=== PATIENT | female | born 1945 | race Caucasian/White ===

== ENCOUNTER 2023-01-04 09:45 | Emergency (ER) | payer OTHER ==
[~2023-01-04] VITALS: Ht 162.6 cm; Wt 68.9 kg
[2023-01-04 09:51] VITALS: BP_SYST 137; PULSE 73; RESP 20; TEMP 98; O2SAT 97
[2023-01-04 10:07] VITALS: BP_SYST 137; PULSE 75; RESP 18; TEMP 97.5; O2SAT 97
[2023-01-04 10:18] LABS: BASOPHILS # (AUTO) 0.1 K/uL (0.0-0.2); BASOPHILS % (AUTO) 0.6 % (0.0-2.0); EOSINOPHILS # (AUTO) 0.2 K/uL (0.0-0.4); EOSINOPHILS % (AUTO) 1.9 % (0.0-4.0); HEMATOCRIT 27.2 % (36-48); HEMOGLOBIN 8.9 g/dL (12.0-16.0); LYMPHOCYTES # (AUTO) 2.2 K/uL (1.0-5.5); LYMPHOCYTES % (AUTO) 20.4 % (20.5-51.5); MEAN CORPUSCULAR HEMOGLOBIN 29 pg (27-31); MEAN CORPUSCULAR HGB CONC 33 % (32-36); MEAN CORPUSCULAR VOLUME 88 fL (79.0-98.0); MONOCYTES # (AUTO) 0.7 K/uL (0.0-1.0); MONOCYTES % (AUTO) 6.3 % (1.7-9.3); NEUTROPHILS # (AUTO) 7.8 K/uL (1.8-7.7); NEUTROPHILS % (AUTO) 70.8 % (40.0-70.0); PLATELET COUNT (AUTO) 406 K/uL (130-430); RED BLOOD CELL COUNT(AUTO) 3.07 MIL/uL (4.2-6.2); RED CELL DISTRIBUTION WIDTH 17.2 % (9.0-15.0)
[2023-01-04 10:25] LABS: ANION GAP 5 (5-15); CALCIUM 9.2 mg/dL (8.4-11.0); CARBON DIOXIDE 31 mmol/L (23-29); CHLORIDE 96 mmol/L (98-107); CREATININE 0.89 mg/dL (0.55-1.30); GLUCOSE 176 mg/dL (74-106); POTASSIUM 4.1 mmol/L (3.5-5.1); SODIUM SERUM 132 mmol/L (136-145); UREA NITROGEN, BLOOD 27 mg/dL (8-21)
[2023-01-04 10:32] LABS: ALANINE AMINOTRANSFERASE 19 U/L (12-78); ALBUMIN 2.3 g/dL (3.4-4.8); ASPARTATE AMINOTRANSFERASE 16 U/L (10-37); TOTAL BILIRUBIN 0.4 mg/dL (0.0-1.0); TOTAL PROTEIN, SERUM 7.4 g/dL (6.4-8.3)
== END 2023-01-04 11:51 | disposition home or self-care (01) ==
LOC: SED 09:45
DX: R04.0 Epistaxis (principal); D64.9 Anemia, unspecified; J44.9 Chronic obstructive pulmonary disease, unspecified; E11.9 Type 2 diabetes mellitus without complications; Z88.5 Allergy status to narcotic agent; Z79.899 Other long term (current) drug therapy
CPT/HCPCS: 36415; 80053; 85025; 99283

== ENCOUNTER 2023-01-18 18:40 | Inpatient (IN) | payer OTHER ==
[~2023-01-18] VITALS: Ht 165.1 cm; Wt 89.5 kg
[2023-01-18 18:55] VITALS: BP_SYST 135; PULSE 86; RESP 16; TEMP 98.6; O2SAT 98
[2023-01-18] MEDS ORDERED: PRAV40TA63 PO (19:11)
[2023-01-18] MEDS ORDERED: DULR10 PR (19:11)
[2023-01-18] MEDS ORDERED: ATRMDI INH (19:11)
[2023-01-18] MEDS ORDERED: IPRA0.2S6 INH (19:11)
[2023-01-18] MEDS ORDERED: AMIO200T66 PO (19:11)
[2023-01-18] MEDS ORDERED: APIX5TAB PO (19:11)
[2023-01-18] MEDS ORDERED: PANT40GR PO (19:11)
[2023-01-18] MEDS ORDERED: FLUT1BLS5 INH (19:11)
[2023-01-18] MEDS ORDERED: FURO20TA4 PO (19:11)
[2023-01-18] MEDS ORDERED: DICY20TA55 PO (19:11)
[2023-01-18] MEDS ORDERED: XOP.63 INH (19:11)
[2023-01-18] MEDS ORDERED: ACET325T53 PO (19:11)
[2023-01-18] MEDS ORDERED: MELA10CA PO (19:11)
[2023-01-18] MEDS ORDERED: SITA1TAB9 PO (19:11)
[2023-01-18] MEDS ORDERED: TRAZ150T77 PO (19:11)
[2023-01-18 19:41] LABS: BASOPHILS % (AUTO) 0.4 % (0.0-2.0); EOSINOPHILS # (AUTO) 0.1 K/uL (0.0-0.4); EOSINOPHILS % (AUTO) 1.2 % (0.0-4.0); HEMATOCRIT 28.1 % (36-48); HEMOGLOBIN 9.3 g/dL (12.0-16.0); LYMPHOCYTES # (AUTO) 1.9 K/uL (1.0-5.5); LYMPHOCYTES % (AUTO) 17.8 % (20.5-51.5); MEAN CORPUSCULAR HEMOGLOBIN 29 pg (27-31); MEAN CORPUSCULAR HGB CONC 33 % (32-36); MEAN CORPUSCULAR VOLUME 89 fL (79.0-98.0); MONOCYTES # (AUTO) 0.7 K/uL (0.0-1.0); MONOCYTES % (AUTO) 6.5 % (1.7-9.3); NEUTROPHILS % (AUTO) 74.1 % (40.0-70.0); PLATELET COUNT (AUTO) 276 K/uL (130-430); RED BLOOD CELL COUNT(AUTO) 3.17 MIL/uL (4.2-6.2); RED CELL DISTRIBUTION WIDTH 18.2 % (9.0-15.0); WHITE BLOOD COUNT (AUTO) 10.8 K/uL (4.8-10.8)
[2023-01-18 19:48] LABS: ANION GAP 7 (5-15); CALCIUM 8.7 mg/dL (8.4-11.0); CARBON DIOXIDE 28 mmol/L (23-29); CHLORIDE 95 mmol/L (98-107); CREATININE 1.05 mg/dL (0.55-1.30); GLUCOSE 225 mg/dL (74-106); SODIUM SERUM 130 mmol/L (136-145); UREA NITROGEN, BLOOD 32 mg/dL (8-21)
[2023-01-18 20:49] LABS: BILIRUBIN,URINE NEGATIVE (NEGATIVE); BLOOD, URINE 2+ (NEGATIVE); COLOR,URINE YELLOW (YELLOW); GLUCOSE,URINE NEGATIVE (NEGATIVE); KETONES,URINE NEGATIVE (NEGATIVE); LEUKOCYTE ESTERASE ,URINE 3+ (NEGATIVE); NITRITE, URINE NEGATIVE (NEGATIVE); PH,URINE 5.5 (5.0-8.0); PROTEIN URINE NEGATIVE (NEGATIVE); UROBILINOGEN,URINE 0.2 (0.2-1.0)
[2023-01-18 20:58] LABS: CLARITY/URINE CLOUDY (CLEAR)
[2023-01-18 21:00] LABS: BACTERIA,URINE MODERATE /HPF (None Seen); MUCUS,URINE None Seen /LPF (None Seen); RBC,URINE 0-3 /HPF (0-3); WBC,URINE >100 /HPF (0-3)
[2023-01-18] MEDS ORDERED: cefTRIAXone 1 GM in D5W 50 ML IV ONE ×2 (21:15→22:15)
[2023-01-18] MEDS ORDERED: LORazepam 1 MG TABLET PO ONE (21:15)
[2023-01-18] MEDS ORDERED: cefTRIAXone 1 GM VIAL ONE (21:34)
[2023-01-18] MEDS ORDERED: 0.45% NACL 1,000 ML IV ONE (22:15)
[2023-01-19] VITALS (12 sets, daily range): BP systolic 101–121; PULSE 70–83; RESP 18–20; TEMP 98.1–98.4; O2SAT 95–98
[2023-01-19] MEDS: ALPRAZolam 0.25 MG TABLET PO PRN ×2 (06:26→20:49)
[2023-01-19] MEDS ORDERED: BISACODYL 10 MG/SUPPOSITORY RC PRN (11:45)
[2023-01-19] MEDS ORDERED: ACETAMINOPHEN 325 MG TABLET PO PRN (11:45)
[2023-01-19] MEDS: cefTRIAXone 1 GM in D5W 50 ML IV SCH (13:22)
[2023-01-19] MEDS: levalbuterol HCL 0.63 MG/3 ML VIAL.NEB INH SCH ×2 (14:11→19:55)
[2023-01-19] MEDS: IPRATROPIUM BROM 0.5 MG/2.5 ML VIAL.NEB (ATROVENT) INH SCH (19:55)
[2023-01-19] MEDS: traZODone HCL 50 MG TABLET (DESYREL) PO SCH (20:48)
[2023-01-19] MEDS: INSULIN REGULAR, HUMAN 100 UNITS/ML, 3 ML VIAL (humuLIN R) SUBCUT PRN (20:55)
[2023-01-20] VITALS (9 sets, daily range): BP systolic 105–131; PULSE 69–91; RESP 17–18; TEMP 96.7–97.6; O2SAT 96–99
[2023-01-20] MEDS: levalbuterol HCL 0.63 MG/3 ML VIAL.NEB INH SCH ×4 (02:42→19:40)
[2023-01-20] MEDS: ALPRAZolam 0.25 MG TABLET PO PRN (04:50)
[2023-01-20] MEDS: INSULIN REGULAR, HUMAN 100 UNITS/ML, 3 ML VIAL (humuLIN R) SUBCUT PRN ×3 (06:16→21:53)
[2023-01-20] MEDS: IPRATROPIUM BROM 0.5 MG/2.5 ML VIAL.NEB (ATROVENT) INH SCH ×2 (07:00→19:40)
[2023-01-20] MEDS: LANSOPRAZOLE 30 MG CAPSULE.DR PO SCH (07:00)
[2023-01-20] MEDS ORDERED: PANTOPRAZOLE GRANULES PACKET 40 MG PO SCH (09:00)
[2023-01-20] MEDS ORDERED: IPRATROPIUM BROMIDE 17 mCg/ACTUATION, 12.9 GM AER.W.ADAP INH SCH (09:00)
[2023-01-20] MEDS: FUROSEMIDE 20 MG TABLET PO SCH (09:05)
[2023-01-20] MEDS: DICYCLOMINE HCL 10 MG CAPSULE PO SCH (09:05)
[2023-01-20] MEDS: AMIODARONE HCL 200 MG TABLET PO SCH (09:06)
[2023-01-20] MEDS: cefTRIAXone 1 GM in D5W 50 ML IV SCH (12:04)
[2023-01-20] MEDS: traZODone HCL 50 MG TABLET (DESYREL) PO SCH (21:45)
[2023-01-21] VITALS (8 sets, daily range): BP systolic 105–142; PULSE 69–76; RESP 16–24; TEMP 97.5–98.4; O2SAT 95–97
[2023-01-21] MEDS: levalbuterol HCL 0.63 MG/3 ML VIAL.NEB INH SCH ×3 (01:00→19:58)
[2023-01-21 05:17] LABS: BASOPHILS # (AUTO) 0.1 K/uL (0.0-0.2); BASOPHILS % (AUTO) 2.4 % (0.0-2.0); EOSINOPHILS # (AUTO) 0.2 K/uL (0.0-0.4); EOSINOPHILS % (AUTO) 4.4 % (0.0-4.0); HEMATOCRIT 27.3 % (36-48); HEMOGLOBIN 9.1 g/dL (12.0-16.0); LYMPHOCYTES % (AUTO) 36.1 % (20.5-51.5); MEAN CORPUSCULAR HEMOGLOBIN 29 pg (27-31); MEAN CORPUSCULAR HGB CONC 33 % (32-36); MEAN CORPUSCULAR VOLUME 88 fL (79.0-98.0); MONOCYTES # (AUTO) 0.5 K/uL (0.0-1.0); MONOCYTES % (AUTO) 8.5 % (1.7-9.3); NEUTROPHILS # (AUTO) 2.7 K/uL (1.8-7.7); NEUTROPHILS % (AUTO) 48.6 % (40.0-70.0); PLATELET COUNT (AUTO) 294 K/uL (130-430); RED BLOOD CELL COUNT(AUTO) 3.09 MIL/uL (4.2-6.2); RED CELL DISTRIBUTION WIDTH 17.7 % (9.0-15.0); WHITE BLOOD COUNT (AUTO) 5.5 K/uL (4.8-10.8)
[2023-01-21 05:50] LABS: ANION GAP 6 (5-15); CALCIUM 9.3 mg/dL (8.4-11.0); CARBON DIOXIDE 30 mmol/L (23-29); CHLORIDE 101 mmol/L (98-107); CREATININE 0.94 mg/dL (0.55-1.30); GLUCOSE 152 mg/dL (74-106); SODIUM SERUM 137 mmol/L (136-145); UREA NITROGEN, BLOOD 23 mg/dL (8-21)
[2023-01-21] MEDS: LANSOPRAZOLE 30 MG CAPSULE.DR PO SCH (06:01)
[2023-01-21] MEDS: INSULIN REGULAR, HUMAN 100 UNITS/ML, 3 ML VIAL (humuLIN R) SUBCUT PRN ×4 (06:10→21:31)
[2023-01-21] MEDS: IPRATROPIUM BROM 0.5 MG/2.5 ML VIAL.NEB (ATROVENT) INH SCH ×2 (08:13→19:58)
[2023-01-21] MEDS: FUROSEMIDE 20 MG TABLET PO SCH (08:39)
[2023-01-21] MEDS: AMIODARONE HCL 200 MG TABLET PO SCH (08:40)
[2023-01-21] MEDS: DICYCLOMINE HCL 10 MG CAPSULE PO SCH (08:40)
[2023-01-21] MEDS: cefTRIAXone 1 GM in D5W 50 ML IV SCH (14:00)
[2023-01-21 15:53] LABS: BILIRUBIN,URINE NEGATIVE (NEGATIVE); CLARITY/URINE Clear (CLEAR); COLOR,URINE YELLOW (YELLOW); GLUCOSE,URINE NEGATIVE (NEGATIVE); KETONES,URINE NEGATIVE (NEGATIVE); LEUKOCYTE ESTERASE ,URINE 1+ (NEGATIVE); NITRITE, URINE NEGATIVE (NEGATIVE); PROTEIN URINE NEGATIVE (NEGATIVE); UROBILINOGEN,URINE 0.2 (0.2-1.0)
[2023-01-21 16:01] LABS: BLOOD, URINE TRACE (NEGATIVE)
[2023-01-21 16:02] LABS: BACTERIA,URINE FEW /HPF (None Seen); MUCUS,URINE None Seen /LPF (None Seen); RBC,URINE 0-3 /HPF (0-3)
[2023-01-21] MEDS: traZODone HCL 50 MG TABLET (DESYREL) PO SCH (21:26)
[2023-01-22] VITALS (7 sets, daily range): BP systolic 118–127; PULSE 73–87; RESP 18–20; TEMP 97.7–98.1; O2SAT 95–98
[2023-01-22] MEDS: ALPRAZolam 0.25 MG TABLET PO PRN ×2 (00:08→14:58)
[2023-01-22] MEDS: levalbuterol HCL 0.63 MG/3 ML VIAL.NEB INH SCH ×3 (01:59→13:00)
[2023-01-22] MEDS: LANSOPRAZOLE 30 MG CAPSULE.DR PO SCH (06:01)
[2023-01-22] MEDS: INSULIN REGULAR, HUMAN 100 UNITS/ML, 3 ML VIAL (humuLIN R) SUBCUT PRN ×2 (06:02→12:08)
[2023-01-22] MEDS: IPRATROPIUM BROM 0.5 MG/2.5 ML VIAL.NEB (ATROVENT) INH SCH (07:03)
[2023-01-22] MEDS ORDERED: CIPR250T4 PO (08:16)
[2023-01-22] MEDS: DICYCLOMINE HCL 10 MG CAPSULE PO SCH (08:46)
[2023-01-22] MEDS: FUROSEMIDE 20 MG TABLET PO SCH (08:47)
[2023-01-22] MEDS: AMIODARONE HCL 200 MG TABLET PO SCH (08:48)
[2023-01-22] MEDS ORDERED: CIPROFLOXACIN HCL 500 MG TABLET PO SCH (10:00)
[2023-01-22] MEDS: cefTRIAXone 1 GM in D5W 50 ML IV SCH (12:04)
== END 2023-01-22 17:15 | disposition home health service (06) | DRG 690 ==
LOC: SED 18:40 → SMU 22:03
PROVIDERS: ADMIT Specialist; ATTEND Specialist
DX: N39.0 Urinary tract infection, site not specified (principal); I42.9 Cardiomyopathy, unspecified; R65.10 Systemic inflammatory response syndrome (SIRS) of non-infectious origin without acute organ dysfunction; I25.10 Atherosclerotic heart disease of native coronary artery without angina pectoris; J44.9 Chronic obstructive pulmonary disease, unspecified; K21.9 Gastro-esophageal reflux disease without esophagitis; I48.91 Unspecified atrial fibrillation; E11.42 Type 2 diabetes mellitus with diabetic polyneuropathy; I10 Essential (primary) hypertension; Z87.440 Personal history of urinary (tract) infections; Z88.5 Allergy status to narcotic agent; Z88.2 Allergy status to sulfonamides; Z79.899 Other long term (current) drug therapy; Z79.01 Long term (current) use of anticoagulants; Z88.8 Allergy status to other drugs, medicaments and biological substances; Z91.012 Allergy to eggs; Z74.01 Bed confinement status
CPT/HCPCS: 36415; 70450-TC; 76376; 80048; 81000; 81003; 82962; 83605; 84443; 85025; 87040; 87081; 87086; 94640; 94760; 96374; 97110-GP; 97116-GP; 97163-GP; 97530-GP; 99285; J0696; J1815; J7060; J7614

== ENCOUNTER 2023-03-07 16:37 | Inpatient (IN) | payer OTHER ==
[2023-03-06] MEDS: D5/0.45 NS 1,000 ML IV SCH (23:52)
[~2023-03-07] VITALS: Ht 162.6 cm; Wt 89.4 kg
[~2023-03-07 16:37] MED LIST: ACET325T53 PO; AMIO200T66 PO; APIX5TAB PO; ATRMDI INH; CIPR250T4 PO; DICY20TA55 PO; DULR10 PR; FLUT1BLS5 INH; FURO20TA4 PO; IPRA0.2S6 INH; MELA10CA PO; PANT40GR PO; PRAV40TA63 PO; SITA1TAB9 PO; TRAZ150T77 PO; XOP.63 INH
[2023-03-07 16:40] VITALS: BP_SYST 136; PULSE 107; RESP 22; TEMP 98; O2SAT 93
[2023-03-07] MEDS ORDERED: NACL 0.9% 1,000 ML IV ONE (18:15)
[2023-03-07 18:55] LABS: BASOPHILS % (AUTO) 0.3 % (0.0-2.0); EOSINOPHILS % (AUTO) 0.5 % (0.0-4.0); HEMATOCRIT 29.9 % (36-48); HEMOGLOBIN 9.7 g/dL (12.0-16.0); LYMPHOCYTES # (AUTO) 0.8 K/uL (1.0-5.5); LYMPHOCYTES % (AUTO) 8.1 % (20.5-51.5); MEAN CORPUSCULAR HEMOGLOBIN 29 pg (27-31); MEAN CORPUSCULAR HGB CONC 33 % (32-36); MEAN CORPUSCULAR VOLUME 88 fL (79.0-98.0); MONOCYTES # (AUTO) 0.5 K/uL (0.0-1.0); MONOCYTES % (AUTO) 5.4 % (1.7-9.3); NEUTROPHILS % (AUTO) 85.7 % (40.0-70.0); PLATELET COUNT (AUTO) 173 K/uL (130-430); RED BLOOD CELL COUNT(AUTO) 3.41 MIL/uL (4.2-6.2); RED CELL DISTRIBUTION WIDTH 16.5 % (9.0-15.0); WHITE BLOOD COUNT (AUTO) 9.3 K/uL (4.8-10.8)
[2023-03-07 18:59] LABS: ANION GAP 10 (5-15); CALCIUM 9.3 mg/dL (8.4-11.0); CARBON DIOXIDE 27 mmol/L (23-29); CHLORIDE 94 mmol/L (98-107); CREATININE 1.32 mg/dL (0.55-1.30); GLUCOSE 228 mg/dL (74-106); POTASSIUM 3.4 mmol/L (3.5-5.1); SODIUM SERUM 131 mmol/L (136-145); UREA NITROGEN, BLOOD 41 mg/dL (8-21)
[2023-03-07 19:02] LABS: INR 1.2 (0.8-1.2); PROTHROMBIN TIME 12.7 SECS (9.5-12.5)
[2023-03-07 19:04] LABS: ALANINE AMINOTRANSFERASE 44 U/L (12-78); ALBUMIN 2.2 g/dL (3.4-4.8); ASPARTATE AMINOTRANSFERASE 43 U/L (10-37); TOTAL BILIRUBIN 0.6 mg/dL (0.0-1.0); TOTAL PROTEIN, SERUM 7.3 g/dL (6.4-8.3)
[2023-03-07 20:10] LABS: BILIRUBIN,URINE NEGATIVE (NEGATIVE); BLOOD, URINE 2+ (NEGATIVE); COLOR,URINE YELLOW (YELLOW); GLUCOSE,URINE NEGATIVE (NEGATIVE); KETONES,URINE NEGATIVE (NEGATIVE); LEUKOCYTE ESTERASE ,URINE 3+ (NEGATIVE); NITRITE, URINE NEGATIVE (NEGATIVE); PROTEIN URINE 1+ (NEGATIVE); UROBILINOGEN,URINE 0.2 (0.2-1.0)
[2023-03-07 20:17] LABS: CLARITY/URINE HAZY (CLEAR)
[2023-03-07 20:28] LABS: BACTERIA,URINE MANY /HPF (None Seen); WBC,URINE 50-80 /HPF (0-3)
[2023-03-07] MEDS ORDERED: MENT71OI TP (21:27)
[2023-03-07] MEDS ORDERED: PANT40GR PO (21:27)
[2023-03-07] MEDS ORDERED: DICY-14 PO (21:27)
[2023-03-07] MEDS ORDERED: METF-834 PO (21:27)
[2023-03-07] MEDS ORDERED: CLOT15CR5 TP (21:27)
[2023-03-07] MEDS ORDERED: INSU300I SQ (21:27)
[2023-03-07] MEDS ORDERED: APIX5TAB PO (21:27)
[2023-03-07] MEDS ORDERED: SITA1TAB6 PO (21:27)
[2023-03-07 23:38] VITALS: O2SAT 93
[2023-03-08] VITALS (11 sets, daily range): BP systolic 125–146; PULSE 99–107; RESP 18–20; TEMP 98.2–98.8; O2SAT 90–96
[2023-03-08] MEDS ORDERED: ALBUTEROL SULFATE 0.083% 2.5 MG/3 ML VIAL.NEB INH ONE (00:28)
[2023-03-08] MEDS: ALBUTEROL SULFATE 0.083% 2.5 MG/3 ML VIAL.NEB INH PRN (00:39)
[2023-03-08] MEDS ORDERED: PANTOPRAZOLE GRANULES PACKET 40 MG PO SCH (09:00)
[2023-03-08] MEDS ORDERED: IPRATROPIUM BROMIDE 17 mCg/ACTUATION, 12.9 GM AER.W.ADAP INH SCH (09:00)
[2023-03-08] MEDS ORDERED: ACETAMINOPHEN 325 MG TABLET PO PRN (09:00)
[2023-03-08] MEDS ORDERED: VANCOMYCIN HCL ORAL SOLUTION 125 MG/5 ML, 150 ML PO SCH (09:00)
[2023-03-08] MEDS ORDERED: VANCOMYCIN HCL 1.25 GM/NS 250 ML IV SCH (09:00)
[2023-03-08] MEDS ORDERED: levalbuterol HCL 0.63 MG/3 ML VIAL.NEB INH SCH (09:00)
[2023-03-08] MEDS ORDERED: IPRATROPIUM BROM 0.5 MG/2.5 ML VIAL.NEB (ATROVENT) INH PRN ×3 (10:15)
[2023-03-08] MEDS ORDERED: LANSOPRAZOLE 30 MG CAPSULE.DR PO ONE (10:15)
[2023-03-08] MEDS: AMIODARONE HCL 200 MG TABLET PO SCH (11:32)
[2023-03-08] MEDS: CLOTRIMAZOLE/BETAMET DIPROP 15 GM TUBE TP SCH ×2 (11:33→21:20)
[2023-03-08] MEDS: IPRATROPIUM/ALBUTEROL SULFATE 3 ML AMPUL.NEB (DUONEB) INH SCH ×3 (13:38→23:35)
[2023-03-08] MEDS: cefTRIAXone 1 GM IVPB PREMIX 50 ML IV SCH (13:42)
[2023-03-08] MEDS: D5/0.45 NS 1,000 ML IV SCH ×2 (15:21→23:14)
[2023-03-08] MEDS: VANCOMYCIN HCL ORAL SOLUTION 125 MG/5 ML, 150 ML PO SCH ×3 (15:35→21:19)
[2023-03-08] MEDS: LANSOPRAZOLE 30 MG CAPSULE.DR PO SCH (21:17)
[2023-03-08] MEDS: traZODone HCL 50 MG TABLET (DESYREL) PO SCH (21:18)
[2023-03-09] VITALS (8 sets, daily range): BP systolic 100–123; PULSE 105–120; RESP 17–22; TEMP 97.1–98.9; O2SAT 95–97
[2023-03-09 05:07] LABS: BASOPHILS % (AUTO) 0.2 % (0.0-2.0); EOSINOPHILS # (AUTO) 0.1 K/uL (0.0-0.4); EOSINOPHILS % (AUTO) 0.9 % (0.0-4.0); HEMATOCRIT 26.5 % (36-48); HEMOGLOBIN 8.5 g/dL (12.0-16.0); LYMPHOCYTES # (AUTO) 1.2 K/uL (1.0-5.5); LYMPHOCYTES % (AUTO) 14.3 % (20.5-51.5); MEAN CORPUSCULAR HEMOGLOBIN 28 pg (27-31); MEAN CORPUSCULAR HGB CONC 32 % (32-36); MEAN CORPUSCULAR VOLUME 87 fL (79.0-98.0); MONOCYTES # (AUTO) 0.8 K/uL (0.0-1.0); MONOCYTES % (AUTO) 9.9 % (1.7-9.3); NEUTROPHILS # (AUTO) 6.4 K/uL (1.8-7.7); NEUTROPHILS % (AUTO) 74.7 % (40.0-70.0); PLATELET COUNT (AUTO) 168 K/uL (130-430); RED BLOOD CELL COUNT(AUTO) 3.04 MIL/uL (4.2-6.2); RED CELL DISTRIBUTION WIDTH 16.5 % (9.0-15.0); WHITE BLOOD COUNT (AUTO) 8.5 K/uL (4.8-10.8)
[2023-03-09 05:13] LABS: ANION GAP 5 (5-15); CALCIUM 8.7 mg/dL (8.4-11.0); CARBON DIOXIDE 27 mmol/L (23-29); CHLORIDE 96 mmol/L (98-107); CREATININE 1.05 mg/dL (0.55-1.30); GLUCOSE 350 mg/dL (74-106); SODIUM SERUM 128 mmol/L (136-145); UREA NITROGEN, BLOOD 22 mg/dL (8-21)
[2023-03-09 05:53] LABS: POTASSIUM 2.8 mmol/L (3.5-5.1)
[2023-03-09] MEDS ORDERED: POTASSIUM CHLORIDE 20 MEQ TAB.PRT.SR PO ONE (06:30)
[2023-03-09] MEDS: IPRATROPIUM/ALBUTEROL SULFATE 3 ML AMPUL.NEB (DUONEB) INH SCH ×3 (07:54→20:17)
[2023-03-09] MEDS ORDERED: POTASSIUM CHLORIDE 40 MEQ, LIDOCAINE JECT 2% PF 100 MG 50 MG in NS 250 ML IV ONE (08:00)
[2023-03-09] MEDS: VANCOMYCIN HCL ORAL SOLUTION 125 MG/5 ML, 150 ML PO SCH ×4 (09:23→22:20)
[2023-03-09] MEDS: AMIODARONE HCL 200 MG TABLET PO SCH (09:23)
[2023-03-09] MEDS: LANSOPRAZOLE 30 MG CAPSULE.DR PO SCH ×2 (09:24→22:01)
[2023-03-09] MEDS: CLOTRIMAZOLE/BETAMET DIPROP 15 GM TUBE TP SCH ×2 (09:24→22:21)
[2023-03-09] MEDS: D5/0.45 NS 1,000 ML IV SCH (09:25)
[2023-03-09] MEDS: cefTRIAXone 1 GM IVPB PREMIX 50 ML IV SCH (11:47)
[2023-03-09] MEDS: traZODone HCL 50 MG TABLET (DESYREL) PO SCH (22:02)
[2023-03-09] MEDS: FUROSEMIDE 20 MG/2 ML VIAL IVP SCH (22:02)
[2023-03-10] VITALS (8 sets, daily range): BP systolic 109–133; PULSE 86–115; RESP 18–22; TEMP 96.8–98.1; O2SAT 94–96
[2023-03-10] MEDS: D5/0.45 NS 1,000 ML IV SCH ×2 (00:10→08:51)
[2023-03-10 01:35] LABS: BILIRUBIN,URINE NEGATIVE (NEGATIVE); CLARITY/URINE CLEAR (CLEAR); COLOR,URINE YELLOW (YELLOW); GLUCOSE,URINE TRACE (NEGATIVE); KETONES,URINE NEGATIVE (NEGATIVE); LEUKOCYTE ESTERASE ,URINE NEGATIVE (NEGATIVE); NITRITE, URINE NEGATIVE (NEGATIVE); PROTEIN URINE NEGATIVE (NEGATIVE); UROBILINOGEN,URINE 0.2 (0.2-1.0)
[2023-03-10 01:55] LABS: BLOOD, URINE TRACE (NEGATIVE)
[2023-03-10] MEDS: IPRATROPIUM/ALBUTEROL SULFATE 3 ML AMPUL.NEB (DUONEB) INH SCH ×3 (02:01→13:33)
[2023-03-10 02:04] LABS: BACTERIA,URINE None Seen /HPF (None Seen)
[2023-03-10 05:29] LABS: BASOPHILS % (AUTO) 0.4 % (0.0-2.0); EOSINOPHILS # (AUTO) 0.1 K/uL (0.0-0.4); EOSINOPHILS % (AUTO) 1.1 % (0.0-4.0); HEMATOCRIT 26.3 % (36-48); HEMOGLOBIN 8.5 g/dL (12.0-16.0); LYMPHOCYTES % (AUTO) 9.3 % (20.5-51.5); MEAN CORPUSCULAR HEMOGLOBIN 28 pg (27-31); MEAN CORPUSCULAR HGB CONC 32 % (32-36); MEAN CORPUSCULAR VOLUME 88 fL (79.0-98.0); MONOCYTES # (AUTO) 0.5 K/uL (0.0-1.0); MONOCYTES % (AUTO) 5.2 % (1.7-9.3); NEUTROPHILS # (AUTO) 8.6 K/uL (1.8-7.7); PLATELET COUNT (AUTO) 209 K/uL (130-430); RED BLOOD CELL COUNT(AUTO) 2.99 MIL/uL (4.2-6.2); RED CELL DISTRIBUTION WIDTH 16.8 % (9.0-15.0); WHITE BLOOD COUNT (AUTO) 10.3 K/uL (4.8-10.8)
[2023-03-10 05:51] LABS: ANION GAP 5 (5-15); CALCIUM 8.6 mg/dL (8.4-11.0); CARBON DIOXIDE 27 mmol/L (23-29); CHLORIDE 97 mmol/L (98-107); CREATININE 0.98 mg/dL (0.55-1.30); GLUCOSE 367 mg/dL (74-106); POTASSIUM 3.3 mmol/L (3.5-5.1); SODIUM SERUM 129 mmol/L (136-145); UREA NITROGEN, BLOOD 16 mg/dL (8-21)
[2023-03-10] MEDS: LANSOPRAZOLE 30 MG CAPSULE.DR PO SCH (08:45)
[2023-03-10] MEDS: CLOTRIMAZOLE/BETAMET DIPROP 15 GM TUBE TP SCH (08:45)
[2023-03-10] MEDS: AMIODARONE HCL 200 MG TABLET PO SCH (08:45)
[2023-03-10] MEDS: VANCOMYCIN HCL ORAL SOLUTION 125 MG/5 ML, 150 ML PO SCH ×2 (08:46→12:54)
[2023-03-10] MEDS: FUROSEMIDE 20 MG/2 ML VIAL IVP SCH (08:59)
[2023-03-10] MEDS ORDERED: FUROSEMIDE 40 MG TABLET PO ONE (09:45)
[2023-03-10] MEDS ORDERED: POTASSIUM CHLORIDE 20 MEQ TAB.PRT.SR PO ONE (09:45)
[2023-03-10] MEDS ORDERED: LEVO250T73 PO (10:53)
[2023-03-10] MEDS: ALBUTEROL SULFATE 0.083% 2.5 MG/3 ML VIAL.NEB INH PRN (10:54)
[2023-03-10] MEDS: cefTRIAXone 1 GM IVPB PREMIX 50 ML IV SCH (12:09)
== END 2023-03-10 15:07 | disposition home or self-care (01) | DRG 640 ==
LOC: SED 16:37 → SMU 21:07
PROVIDERS: ADMIT Specialist; ATTEND Specialist
DX: E86.0 Dehydration (principal); I50.31 Acute diastolic (congestive) heart failure; N17.0 Acute kidney failure with tubular necrosis; J45.901 Unspecified asthma with (acute) exacerbation; N39.0 Urinary tract infection, site not specified; E44.0 Moderate protein-calorie malnutrition; E87.6 Hypokalemia; K29.70 Gastritis, unspecified, without bleeding; R19.7 Diarrhea, unspecified; E03.9 Hypothyroidism, unspecified; G47.00 Insomnia, unspecified; E66.01 Morbid (severe) obesity due to excess calories; F32.A Depression, unspecified; Z88.2 Allergy status to sulfonamides; Z88.8 Allergy status to other drugs, medicaments and biological substances; Z91.012 Allergy to eggs; Z91.013 Allergy to seafood; Z79.899 Other long term (current) drug therapy; Z74.01 Bed confinement status; Z68.33 Body mass index [BMI] 33.0-33.9, adult; B96.20 Unspecified Escherichia coli [E. coli] as the cause of diseases classified elsewhere
CPT/HCPCS: 36415; 71045; 80048; 80053; 81000; 81001; 81015; 83605; 83880; 84443; 85025; 85610-TC; 85730-TC; 87040; 87081; 87086; 87230-TC; 93005; 94640; 94760; 96360; 99285; J0696; J1940; J3480; J7050

== ENCOUNTER 2023-03-12 07:52 | Emergency (ER) | payer OTHER ==
[~2023-03-12] VITALS: Ht 170.2 cm; Wt 74.8 kg
[~2023-03-12 07:52] MED LIST changes: -CIPR250T4 PO; +CLOT15CR5 TP; +DICY-14 PO; -DICY20TA55 PO; +INSU300I SQ; -IPRA0.2S6 INH; +LEVO250T73 PO; +MENT71OI TP; +METF-834 PO; -PRAV40TA63 PO; +SITA1TAB6 PO; -SITA1TAB9 PO
[2023-03-12 07:56] VITALS: BP_SYST 159; PULSE 90; RESP 20; TEMP 98.1; O2SAT 97
[2023-03-12] MEDS ORDERED: iohexoL 350 mgI/mL, 100 ML INFUS..BTL IV ONE (08:06)
[2023-03-12 08:27] LABS: BASOPHILS # (AUTO) 0.1 K/uL (0.0-0.2); BASOPHILS % (AUTO) 0.6 % (0.0-2.0); EOSINOPHILS # (AUTO) 0.2 K/uL (0.0-0.4); EOSINOPHILS % (AUTO) 2.1 % (0.0-4.0); HEMATOCRIT 28.8 % (36-48); HEMOGLOBIN 9.1 g/dL (12.0-16.0); LYMPHOCYTES # (AUTO) 1.4 K/uL (1.0-5.5); LYMPHOCYTES % (AUTO) 15.7 % (20.5-51.5); MEAN CORPUSCULAR HEMOGLOBIN 28 pg (27-31); MEAN CORPUSCULAR HGB CONC 32 % (32-36); MEAN CORPUSCULAR VOLUME 87 fL (79.0-98.0); MONOCYTES # (AUTO) 0.4 K/uL (0.0-1.0); MONOCYTES % (AUTO) 4.6 % (1.7-9.3); NEUTROPHILS # (AUTO) 6.9 K/uL (1.8-7.7); PLATELET COUNT (AUTO) 305 K/uL (130-430); RED CELL DISTRIBUTION WIDTH 17.1 % (9.0-15.0)
[2023-03-12 08:37] LABS: ANION GAP 6 (5-15); CALCIUM 9.1 mg/dL (8.4-11.0); CARBON DIOXIDE 29 mmol/L (23-29); CHLORIDE 99 mmol/L (98-107); CREATININE 0.89 mg/dL (0.55-1.30); GLUCOSE 227 mg/dL (74-106); POTASSIUM 3.3 mmol/L (3.5-5.1); SODIUM SERUM 134 mmol/L (136-145); UREA NITROGEN, BLOOD 12 mg/dL (8-21)
[2023-03-12 08:39] LABS: INR 1.2 (0.8-1.2); PROTHROMBIN TIME 12.7 SECS (9.5-12.5)
[2023-03-12 08:43] LABS: ALANINE AMINOTRANSFERASE 50 U/L (12-78); ASPARTATE AMINOTRANSFERASE 31 U/L (10-37); CHOLESTEROL 145 mg/dL (<200); HDL CHOLESTEROL 24 mg/dL (>55); TOTAL BILIRUBIN 0.4 mg/dL (0.0-1.0); TOTAL PROTEIN, SERUM 6.8 g/dL (6.4-8.3); TRIGLYCERIDES 179 mg/dL (30-150)
[2023-03-12 09:06] LABS: HEMOGLOBIN A1C 6.36 % (<5.7)
[2023-03-12 09:51] VITALS: BP_SYST 144; PULSE 84; RESP 18; TEMP 98.7; O2SAT 93
== END 2023-03-12 10:00 | disposition short-term general hospital (02) ==
LOC: SED 07:52
DX: I61.1 Nontraumatic intracerebral hemorrhage in hemisphere, cortical (principal); I65.22 Occlusion and stenosis of left carotid artery; I66.02 Occlusion and stenosis of left middle cerebral artery; R41.82 Altered mental status, unspecified; J44.9 Chronic obstructive pulmonary disease, unspecified; E11.9 Type 2 diabetes mellitus without complications; I10 Essential (primary) hypertension; K21.9 Gastro-esophageal reflux disease without esophagitis; Z88.5 Allergy status to narcotic agent; Z91.018 Allergy to other foods; Z91.012 Allergy to eggs; Z79.4 Long term (current) use of insulin; Z79.899 Other long term (current) drug therapy
CPT/HCPCS: 99291; 70450; 80061; 80053; 83037; 85025; 85610; 85730; 86886; 86900; 86901; 84484; 36415; 93005; 70496; 70498; 99292; 83605; 76376; Q9967